=== PATIENT | female | born 1950 | race Caucasian/White ===

== ENCOUNTER → 2017-04-29 | Outpatient (CLI) | payer MEDICARE, OTHER ==
[~2017-04-29] MED LIST: ALLOPURINOL100 MG PO; AVAPRO300 MG PO; CELEXA10 MG PO; COREG3.125 MG PO; CYMBALTA60 MG PO; FLONASE 0.05% 121 EA NAS; MASON NATURAL2000 IU PO; MOTRIN800 MG PO; NORCO 325 MG-7.1 TAB PO; PHENERGAN W/DM120 ML PO; PLAVIX75 MG PO; PRAVACHOL80 MG PO; PREDNICOT10 MG PO; PRILOSEC20 MG PO; SULAR25.5 MG PO; ZYRTEC10 MG PO
[2017-04-29 10:11] LABS: HEMATOCRIT 33.3 % (37.0-47.0); HEMOGLOBIN 10.8 g/dl (12.0-16.0); MEAN CELL VOLUME 97.1 fl (81.0-99.0); MEAN CORPUSCULAR HGB 31.5 pg (27.0-31.0); MEAN CORPUSCULAR HGB CONC 32.4 g/dl (33.0-37.0); MEAN PLATELET VOLUME 10.2 fl (9.6-12.3); PLATELET COUNT AUTOMATED 345 10*3/uL (130-400); RED BLOOD COUNT 3.43 10*6/uL (4.10-5.10); RED CELL DISTRI WIDTH 13.9 % (0-14.5); WHITE BLOOD COUNT 12.6 10*3/uL (4.8-10.8)
[2017-04-29 10:32] LABS: BASOPHILS 2 % (0-1); PLATELET SUFFICIENCY NORMAL (NORMAL); TOTAL CELLS COUNTED 100 #CELLS
== END | disposition home or self-care (01) ==
LOC: LAB 09:12
PROVIDERS: Orthopaedic Surgery
DX: Z01.812 Encounter for preprocedural laboratory examination (principal); R79.89 Other specified abnormal findings of blood chemistry

== ENCOUNTER → 2017-07-16 | Outpatient (CLI) | payer MEDICARE, OTHER ==
[2017-07-16 09:56] LABS: BASO # 0.1 10*3/uL (0.0-0.1); BASO % 0.7 % (0.0-1.0); EOS # 0.2 10*3/uL (0.0-0.4); EOS % 1.9 % (1.0-4.0); HEMATOCRIT 35.3 % (37.0-47.0); HEMOGLOBIN 11.5 g/dl (12.0-16.0); LYMPH # 4.7 10*3/uL (1.3-4.4); LYMPH % 42.9 % (27.0-41.0); MEAN CELL VOLUME 92.4 fl (81.0-99.0); MEAN CORPUSCULAR HGB 30.1 pg (27.0-31.0); MEAN CORPUSCULAR HGB CONC 32.6 g/dl (33.0-37.0); MEAN PLATELET VOLUME 9.7 fl (9.6-12.3); MONO # 0.7 10*3/uL (0.1-1.0); MONO % 6.6 % (3.0-9.0); NEUT # 5.3 10*3/uL (2.3-7.9); NEUT % 47.8 % (47.0-73.0); PLATELET COUNT AUTOMATED 323 10*3/uL (130-400); RED BLOOD COUNT 3.82 10*6/uL (4.10-5.10); RED CELL DISTRI WIDTH 14.4 % (0-14.5)
[2017-07-16 10:18] LABS: ALBUMIN 3.3 gm/dl (3.1-4.5); CREATININE 1.26 mg/dL (0.55-1.02); PHOSPHOROUS 3.8 mg/dL (2.5-4.9); POTASSIUM 4.3 mmol/L (3.5-5.1)
== END | disposition home or self-care (01) ==
LOC: LAB 09:34
PROVIDERS: Internal Medicine
DX: D72.828 Other elevated white blood cell count (principal); G89.4 Chronic pain syndrome; R79.9 Abnormal finding of blood chemistry, unspecified

== ENCOUNTER → 2017-10-16 | Outpatient (CLI) | payer MEDICARE, OTHER ==
[2017-10-16 11:35] LABS: BASO # 0.1 10*3/uL (0.0-0.1); BASO % 0.7 % (0.0-1.0); EOS # 0.1 10*3/uL (0.0-0.4); EOS % 1.1 % (1.0-4.0); HEMATOCRIT 38.5 % (37.0-47.0); HEMOGLOBIN 12.7 g/dl (12.0-16.0); LYMPH # 2.2 10*3/uL (1.3-4.4); LYMPH % 25.9 % (27.0-41.0); MEAN CELL VOLUME 96.3 fl (81.0-99.0); MEAN CORPUSCULAR HGB 31.8 pg (27.0-31.0); MEAN PLATELET VOLUME 9.6 fl (9.6-12.3); MONO # 0.8 10*3/uL (0.1-1.0); MONO % 9.7 % (3.0-9.0); NEUT # 5.3 10*3/uL (2.3-7.9); NEUT % 62.4 % (47.0-73.0); PLATELET COUNT AUTOMATED 241 10*3/uL (130-400); RED CELL DISTRI WIDTH 15.9 % (0-14.5); WHITE BLOOD COUNT 8.5 10*3/uL (4.8-10.8)
[2017-10-16 12:01] LABS: BILIRUBIN NEGATIVE (NEGATIVE); BLOOD 2+ (NEGATIVE); COLOR YELLOW (YELLOW); GLUCOSE NEGATIVE (NEGATIVE); KETONE NEGATIVE (NEGATIVE); LEUKO ESTERASE NEGATIVE (NEGATIVE); NITRITE NEGATIVE (NEGATIVE); PH 5.5 (5.0-9.0); UROBILINOGEN 0.2 E.U./dl (0.2-1.0)
[2017-10-16 12:02] LABS: ALBUMIN 3.2 gm/dl (3.1-4.5); ALKALINE PHOSPHATASE 125 U/L (45-117); BUN 17 mg/dl (7-24); CHLORIDE 103 mmol/L (98-107); CREATININE 1.02 mg/dL (0.55-1.02); PHOSPHOROUS 3.8 mg/dL (2.5-4.9); SGOT/AST 26 IU/L (3-35); SGPT/ALT 36 U/L (12-78); SODIUM 137 mmol/L (136-145); URIC ACID 4.7 mg/dL (2.6-6.0)
[2017-10-16 12:09] LABS: BACTERIA 1+; CLARITY SL CLOUDY (CLEAR); EPITHELIAL CELLS TNTC; RBC 21-30 rbc/hpf (0-2)
[2017-10-17 09:07] LABS: CREATININE,URINE 60.2 mg/dL (Not Estab.)
== END | disposition home or self-care (01) ==
LOC: LAB 11:11
PROVIDERS: Internal Medicine Nephrology
DX: I12.9 Hypertensive chronic kidney disease with stage 1 through stage 4 chronic kidney disease, or unspecified chronic kidney disease (principal); N18.3 Chronic kidney disease, stage 3 (moderate); N39.0 Urinary tract infection, site not specified; R80.9 Proteinuria, unspecified; Q61.02 Congenital multiple renal cysts; R31.21 Asymptomatic microscopic hematuria; E79.0 Hyperuricemia without signs of inflammatory arthritis and tophaceous disease; R52 Pain, unspecified; K21.9 Gastro-esophageal reflux disease without esophagitis; J44.9 Chronic obstructive pulmonary disease, unspecified; E78.4 Other hyperlipidemia

== ENCOUNTER → 2018-09-30 | Outpatient (CLI) | payer MEDICARE, OTHER | END | disposition home or self-care (01) | LOC: MRI 09-27 09:00 | DX: M43.12 Spondylolisthesis, cervical region (principal); M48.02 Spinal stenosis, cervical region ==

== ENCOUNTER 2019-05-21 16:09 | Inpatient (IN) | payer MEDICARE, OTHER ==
[2019-05-21] VITALS (13 sets, daily range): BP systolic 78–124; BP diastolic 41–67
[~2019-05-21] VITALS: Ht 160 cm; Wt 91.3 kg
[2019-05-21 16:43] LABS: BASO # 0.1 10*3/uL (0.0-0.1); BASO % 0.5 % (0.0-1.0); EOS # 0.1 10*3/uL (0.0-0.4); EOS % 0.6 % (1.0-4.0); HEMATOCRIT 39.2 % (37.0-47.0); HEMOGLOBIN 13.2 g/dl (12.0-16.0); LYMPH # 3.9 10*3/uL (1.3-4.4); LYMPH % 29.8 % (27.0-41.0); MEAN CELL VOLUME 93.1 fl (81.0-99.0); MEAN CORPUSCULAR HGB 31.4 pg (27.0-31.0); MEAN CORPUSCULAR HGB CONC 33.7 g/dl (33.0-37.0); MEAN PLATELET VOLUME 9.6 fl (9.6-12.3); MONO % 7.9 % (3.0-9.0); PLATELET COUNT AUTOMATED 334 10*3/uL (130-400); RED BLOOD COUNT 4.21 10*6/uL (4.10-5.10); RED CELL DISTRI WIDTH 14.1 % (0-14.5); WHITE BLOOD COUNT 13.2 10*3/uL (4.8-10.8)
[2019-05-21 16:52] LABS: ACT PARTIAL THROMBO TIME 26.9 SECONDS (20.0-32.1); INTERNATIONAL NORM RATIO 0.9 (2.0-3.5)
[2019-05-21 17:01] LABS: ALBUMIN 3.2 gm/dl (3.1-4.5); ALKALINE PHOSPHATASE 100 U/L (45-117); BUN 45 mg/dl (7-24); CHLORIDE 103 mmol/L (98-107); CREATININE 2.28 mg/dL (0.55-1.02); POTASSIUM 3.7 mmol/L (3.5-5.1); SGOT/AST 14 IU/L (3-35); SGPT/ALT 22 U/L (12-78); SODIUM 132 mmol/L (136-145); TOTAL PROTEIN 6.9 gm/dL (6.4-8.2); TROPONIN I < 0.015 ng/ml (<0.045)
--- NOTE | 2019-05-21 17:46 | NUR ---
500 CC FLUID BOLUS IS COMPLETE. BLOOD PRESSURE IS 102/63 AT THIS TIME. PT REMAINS AWAKE AND ALERT. APPEARS TO BE FEELING BETTER. NO DISTRESS NOTED. NOREEN ASHLEY
--- NOTE | 2019-05-21 18:07 | NUR ---
BLOOD PRESSURE HAS DROPPED WITH FLUIDS RUNNING AT 125CCHR. DR DELA CRUZ MADE AWARE. ADDITIONAL 500 CC BOLUS BEING GIVEN NOW. PT REMAINS AWAKE AND ALERT,NO CO DISCOMFORT. BP 86/53 AT THIS TIME. NOREEN ASHLEY
--- NOTE | 2019-05-21 19:03 | NUR ---
REPORT FROM CARLIN ASHLEY, ASSUMED CARE OF PT, PT IN CT ORDERED FOR HEAD CT
--- NOTE | 2019-05-21 19:17 | NUR ---
PT RETURNED FROM CT IN NO DISTRESS, DAUGHTER AT BEDSIDE, CALL JIN IN REACH
--- NOTE | 2019-05-21 19:19 | NUR ---
EKG AND DIGITAL PHOTOGRAPHIC PRINTER AT BEDSIDE
--- NOTE | 2019-05-21 20:00 | NUR ---
IN TO DISCUSS ADMIT PLAN,PT GIVEN BOX LUNCH, PT MEDICATED FOR CHRONIC BACK PAIN 03/05 ORDERED BY , SEE EMAR, AWAITING BED ASSIGNMENT FOR ADMIT, WILL CONTINUE TO MONITOR PT
--- NOTE | 2019-05-21 20:08 | NUR ---
ADMITTING MD IN TO EVALUATE PT
--- NOTE | 2019-05-21 20:30 | NUR ---
PT ADMITTED TO [facility] IN NO ACUTE DISTRESS WITH BELONGINGS ST ON MONITOR, RESP EASY ON RA, SALINE LOCK PATENT WITH NO REDNESS OR SWELLING, WITH RN ON STRETCHER
--- NOTE | 2019-05-21 20:30 | NUR ---
Time: 2029 A 68 year old FEMALE admitted to 5E under services of ANDREWS SHANE DO. Pt. arrived via stretcher from ER. Chief complaint: DIZZINESS. TEJINDER RHOADES
[2019-05-21] MEDS ORDERED: CYCLOBENZAPRINE10 MG PO (21:11)
[2019-05-21] MEDS ORDERED: AVALIDE 300-121 EACH PO (21:13)
[2019-05-21] MEDS ORDERED: CYMBALTA30 MG PO (21:14)
--- NOTE | 2019-05-21 21:15 | NUR ---
PATIENT HOME MEDICATIONS UP TO DATE. DR CALLAHAN AWARE. ALSO AWARE THAT PATIENT HAS POSITIVE ORTHOSTATIC BP. IV FLUIDS STARTED AT THIS TIME. WILL MONITOR.
[2019-05-22] VITALS: BP 92/48
--- NOTE | 2019-05-22 02:35 | NUR ---
24 HR chart check completed.
[2019-05-22 04:33] LABS: BILIRUBIN NEGATIVE (NEGATIVE); BLOOD NEGATIVE (NEGATIVE); CLARITY CLEAR (CLEAR); COLOR YELLOW (YELLOW); GLUCOSE NEGATIVE (NEGATIVE); KETONE NEGATIVE (NEGATIVE); LEUKO ESTERASE NEGATIVE (NEGATIVE); NITRITE NEGATIVE (NEGATIVE); PH 5.5 (5.0-9.0); SPECIFIC GRAVITY <= 1.005 (1.005-1.030); UROBILINOGEN 0.2 E.U./dl (0.2-1.0)
[2019-05-22 04:40] LABS: BACTERIA TRACE; HYALINE CAST 0-2
--- NOTE | 2019-05-22 05:30 | NUR ---
PATIENT REQUESTING PAIN MEDICATION FOR BACK PAIN, NONE ON ORDER. DR MOY CALLED, OK TO ORDER NORCO SHE TAKES AT HOME. BP 106/50 AT THIS TIME. WILL MONITOR.
--- NOTE | 2019-05-22 05:39 | NUR ---
PATIENT REQUESTING PAIN MEDICATION FOR BACK PAIN RATED 9/10 ON 0/10 SCALE. NORCO ADMINISTERED PRESCRIBED. WILL MONITOR FOR EFFECTIVENESS.
[2019-05-22 06:44] LABS: BASO % 0.4 % (0.0-1.0); EOS # 0.1 10*3/uL (0.0-0.4); EOS % 1.1 % (1.0-4.0); HEMATOCRIT 37.2 % (37.0-47.0); HEMOGLOBIN 12.2 g/dl (12.0-16.0); LYMPH # 3.8 10*3/uL (1.3-4.4); LYMPH % 36.6 % (27.0-41.0); MEAN CELL VOLUME 94.4 fl (81.0-99.0); MEAN CORPUSCULAR HGB CONC 32.8 g/dl (33.0-37.0); MEAN PLATELET VOLUME 9.6 fl (9.6-12.3); MONO # 0.8 10*3/uL (0.1-1.0); MONO % 7.4 % (3.0-9.0); NEUT # 5.7 10*3/uL (2.3-7.9); PLATELET COUNT AUTOMATED 296 10*3/uL (130-400); RED BLOOD COUNT 3.94 10*6/uL (4.10-5.10); RED CELL DISTRI WIDTH 13.9 % (0-14.5); WHITE BLOOD COUNT 10.5 10*3/uL (4.8-10.8)
[2019-05-22 07:03] LABS: CREATININE 1.7 mg/dL (0.55-1.02); PHOSPHOROUS 4.1 mg/dL (2.5-4.9); POTASSIUM 3.7 mmol/L (3.5-5.1)
[2019-05-22 08:00] VITALS: BP 112/82
[2019-05-22 11:30] VITALS: BP 98/56
--- NOTE | 2019-05-22 11:45 | NUR ---
PHYSICAL THERAPY PT EVAL COMPLETED 05/22/19: FULL EVALUATION TO FOLLOW. RECOMMEND PT WHILE HERE TO ADDRESS AND ALLOW RETURN TO PLOF. PT EVAL IS MODERATE COMPLEXITY: [id number]. ON EVAL SHE IS ADAMENT ABOUT NOT GOING TO ANY SNF ON D/C BUT IS WILLING TO DO HOME HEALTH IF INDICATED AT D/C. THANK YOU FOR REFERRAL PASCALE [facility] PT
--- NOTE | 2019-05-22 11:52 | NUR ---
CALLED DR. SALINAS MADE AWARE PT BP 98/56. ALSO MADE AWARE HELD COREG DOSE. RECHECK IN 1 HOUR AND CALL BACK PER DR. SALINAS
[2019-05-22 12:00] VITALS: BP 115/62
--- NOTE | 2019-05-22 12:45 | NUR ---
CALLED DR. SALINAS REGARDING PT BP 120/70. OK TO GIVE COREG.
--- NOTE | 2019-05-22 14:07 | NUR ---
PT C/O BACK PAIN, RATES PAIN 7 OR 8 ON PAIN SCALE 0-10. MEDICATRED WITH NORCO PO PER PRN ORDER, SEE EMAR. CALL LIGHT IN REACH. IVF INFUSING WITH NO PROBLEM.
--- NOTE | 2019-05-22 15:00 | NUR ---
SITTING UP IN RECLINER CHAIR, STATES MEDICATION WAS EFFECTIVE. CALL LIGHT IN REACH.
[2019-05-22 16:00] VITALS: BP 130/69
--- NOTE | 2019-05-22 16:00 | NUR ---
PT SITTING UP IN RECLINER CHAIR. RESP-EASY AND REGULAR. NO C/O AT THIS TIME. VISITORS AT HER SIDE. CALL LIGHT IN REACH. SEE SHIFT ASSESSMENT.
--- NOTE | 2019-05-22 18:30 | NUR ---
PT SITTING UP IN CHAIR. RESP-EASY AND REGULAR. NO C/O AT THIS TIME. CALL LIGHT IN REACH.
[2019-05-22 20:00] VITALS: BP 116/58
--- NOTE | 2019-05-22 20:32 | NUR ---
PATIENT REQUESTING PAIN MEDICATION FOR BACK PAIN RATED 8/10 ON 0/10 SCALE. NORCO ADMINISTERED PRESCRIBED. WILL MONITOR FOR EFFECTIVENESS.
[2019-05-23] VITALS: BP 93/27
--- NOTE | 2019-05-23 03:00 | NUR ---
PATIENT RESTING WITH EYES CLOSED AT THIS TIME. RESPIRATIONS EASY AND UNLABORED. BED ALARM ON AND CALL LIGHT WITHIN REACH. WILL MONITOR.
--- NOTE | 2019-05-23 04:56 | NUR ---
24 HR chart check completed.
--- NOTE | 2019-05-23 05:30 | NUR ---
PATIENT REQUESTING PAIN MEDICATION FOR BACK PAIN RATED 8/10 ON 0/10 SCALE. NOROCO ADMINISTERED PRESCRIBED. WILL MONITOR FOR EFFECTIVENESS.
[2019-05-23 07:09] LABS: CREATININE 1.19 mg/dL (0.55-1.02)
[2019-05-23 08:00] VITALS: BP 130/70
--- NOTE | 2019-05-23 08:30 | NUR ---
Per, Jovanna Salinas, family requesting patient be referred to [facility]. AUTOMOTIVE SALESPERSON faxed new referral to [facility]. -BETSEY Lomeli
--- NOTE | 2019-05-23 10:29 | NUR ---
RESIDENT UPDATED ON ORTHOS PT SITTING IN CHAIR SO SUPINE WAS NOT AVAILABLE
--- NOTE | 2019-05-23 10:30 | NUR ---
Hepatologist in to talk to patient. Patient states lives at home with her daughter. There are 14 steps in the home. Physician: Dr. Jovanni Ivy. She states she has an appt with Dr. Ivy tomorrow 05/24. Pharmacy: [facility] Home health services: none Patient's level of ADLs: INDEPENDENT Patient has working utilities: yes DME: none Follow-up physician's appointment after d/c: will be made by the hospitalist nurse director upon discharge Does patient want to access PORTAL?: no Discharge plan discussed with patient. She is sitting up in her bedside chair without distress noted. She lives at home with her daughter. She is independent in her ADLs and ambulation. Discussed home health care services and she denies any home needs at this time. When medically stable she will be discharged to home. She states her [id number] will provide transportation on discharge. LORENZO MCPHERSON
[2019-05-23 12:00] VITALS: BP 106/77
--- NOTE | 2019-05-23 13:40 | NUR ---
PHYSICAL THERAPY Patient seen this pm 1:1 for therapy visit and was sitting up in bedside chair following lunch upon therapist arrival. Patient identified by name / and was very pleasant this afternoon voicing no new c/o's. Patient transfers sit to stand from low chair surface, SBA x 1, then ambulates CENTER SALES AND SERVICE ASSOCIATE/CGA, 100'x 1, demonstrating slow, steady cecy with no LOB. Patient did demonstrate increased fatigue along with increased low back stiffness during prolonged standing activities. Patient returned to bedside chair and remained with call light, tray table and telephone. Will continue per POC as tolerated, total treatment time 13 minutes. Arslan Gordon, HIGHWAY WORKER
[2019-05-23] MEDS ORDERED: CARVEDILOL3.125 MG PO (14:08)
--- NOTE | 2019-05-23 15:10 | NUR ---
DC DANIELLA PTWILL SEE DR MORA TOMORROW AMA GIVEN PRIOR TODC, DTR PICKING PT UP
--- NOTE | 2019-05-24 10:07 | NUR ---
PHYSICAL THERAPY CO-SIGN I approve of the Physical Therapy notes written above. Briseida Briceño, PT, DPT
== END 2019-05-23 18:23 | disposition home or self-care (01) | DRG 682 ==
LOC: ED 16:09 → 5E 20:01 → EDHOLD 20:01 → 5E 20:14
PROVIDERS: Emergency Medicine; Internal Medicine; Student in an Organized Health Care Education/Training Program; ADMIT Internal Medicine
DX: N17.0 Acute kidney failure with tubular necrosis (principal); R65.11 Systemic inflammatory response syndrome (SIRS) of non-infectious origin with acute organ dysfunction; E87.1 Hypo-osmolality and hyponatremia; E44.0 Moderate protein-calorie malnutrition; F41.9 Anxiety disorder, unspecified; F17.210 Nicotine dependence, cigarettes, uncomplicated; M10.9 Gout, unspecified; I95.1 Orthostatic hypotension; E66.9 Obesity, unspecified; E55.9 Vitamin D deficiency, unspecified; I12.9 Hypertensive chronic kidney disease with stage 1 through stage 4 chronic kidney disease, or unspecified chronic kidney disease; F32.9 Major depressive disorder, single episode, unspecified; N18.3 Chronic kidney disease, stage 3 (moderate); E86.0 Dehydration; E78.5 Hyperlipidemia, unspecified; Z90.49 Acquired absence of other specified parts of digestive tract; Z71.6 Tobacco abuse counseling; Z82.49 Family history of ischemic heart disease and other diseases of the circulatory system; Z80.42 Family history of malignant neoplasm of prostate; Z68.31 Body mass index [BMI] 31.0-31.9, adult

== ENCOUNTER → 2020-06-12 | Outpatient (CLI) | payer MEDICARE, OTHER ==
[~2020-06-12] MED LIST changes: +AVALIDE 300-121 EACH PO; +CARVEDILOL3.125 MG PO; +CYCLOBENZAPRINE10 MG PO; +CYMBALTA30 MG PO
== END | disposition home or self-care (01) ==
LOC: LAB 10:29
PROVIDERS: ATTEND Internal Medicine
DX: Z01.818 Encounter for other preprocedural examination (principal); Z22.322 Carrier or suspected carrier of Methicillin resistant Staphylococcus aureus

== ENCOUNTER 2020-12-03 10:59 | Inpatient (IN) | payer MEDICARE, OTHER ==
[~2020-12-03] VITALS: Ht 154.9 cm; Wt 69.1 kg
[2020-12-03 11:21] VITALS: BP 167/89
[2020-12-03 16:18] LABS: BASO # 0.1 10*3/uL (0.0-0.1); BASO % 0.8 % (0.0-1.0); EOS # 0.2 10*3/uL (0.0-0.4); EOS % 2.2 % (1.0-4.0); HEMATOCRIT 36.6 % (37.0-47.0); LYMPH # 4.3 10*3/uL (1.3-4.4); LYMPH % 43.1 % (27.0-41.0); MEAN CELL VOLUME 94.3 fl (81.0-99.0); MEAN CORPUSCULAR HGB 29.9 pg (27.0-31.0); MEAN CORPUSCULAR HGB CONC 31.7 g/dl (33.0-37.0); MEAN PLATELET VOLUME 10.2 fl (9.6-12.3); MONO # 0.8 10*3/uL (0.1-1.0); MONO % 7.6 % (3.0-9.0); NEUT # 4.6 10*3/uL (2.3-7.9); NEUT % 46.1 % (47.0-73.0); PLATELET COUNT AUTOMATED 351 10*3/uL (130-400); RED BLOOD COUNT 3.88 10*6/uL (4.10-5.10); RED CELL DISTRI WIDTH 14.6 % (0-14.5); WHITE BLOOD COUNT 10.1 10*3/uL (4.8-10.8)
[2020-12-03 16:28] LABS: ACT PARTIAL THROMBO TIME 25.3 SECONDS (20.0-32.1)
[2020-12-03 16:33] LABS: ALBUMIN 3.2 gm/dl (3.1-4.5); ALKALINE PHOSPHATASE 101 U/L (45-117); BUN 27 mg/dl (7-24); CHLORIDE 110 mmol/L (98-107); CREATININE 1.27 mg/dL (0.55-1.02); LIPASE 93 U/L (73-393); POTASSIUM 3.5 mmol/L (3.5-5.1); SGOT/AST 9 IU/L (3-35); SGPT/ALT 11 U/L (12-78); SODIUM 141 mmol/L (136-145)
[2020-12-03 16:35] LABS: TROPONIN I < 0.015 ng/ml (<0.045)
[2020-12-03 18:50] VITALS: BP 181/102
[2020-12-03 19:39] VITALS: BP 189/94
[2020-12-03 20:39] VITALS: BP 205/90
[2020-12-03 21:09] VITALS: BP 158/105
[2020-12-04 02:46] VITALS: BP 136/92
[2020-12-04 04:54] VITALS: BP 166/87
[2020-12-04 06:15] LABS: CHLORIDE 110 mmol/L (98-107); POTASSIUM 3.1 mmol/L (3.5-5.1); SODIUM 141 mmol/L (136-145)
[2020-12-04 06:24] LABS: BASO # 0.1 10*3/uL (0.0-0.1); BASO % 0.6 % (0.0-1.0); EOS # 0.2 10*3/uL (0.0-0.4); EOS % 1.7 % (1.0-4.0); HEMATOCRIT 37.5 % (37.0-47.0); LYMPH # 3.4 10*3/uL (1.3-4.4); LYMPH % 31.5 % (27.0-41.0); MEAN CELL VOLUME 92.4 fl (81.0-99.0); MEAN CORPUSCULAR HGB CONC 32.5 g/dl (33.0-37.0); MEAN PLATELET VOLUME 10.7 fl (9.6-12.3); MONO # 0.9 10*3/uL (0.1-1.0); MONO % 8.2 % (3.0-9.0); NEUT # 6.3 10*3/uL (2.3-7.9); NEUT % 57.8 % (47.0-73.0); PLATELET COUNT AUTOMATED 372 10*3/uL (130-400); RED BLOOD COUNT 4.06 10*6/uL (4.10-5.10); RED CELL DISTRI WIDTH 14.6 % (0-14.5); WHITE BLOOD COUNT 10.9 10*3/uL (4.8-10.8)
[2020-12-04 06:33] VITALS: BP 134/72
[2020-12-04 06:33] LABS: ALBUMIN 3.2 gm/dl (3.1-4.5); ALKALINE PHOSPHATASE 95 U/L (45-117); BUN 22 mg/dl (7-24); CHOLESTEROL 240 mg/dL (<200); CREATININE 1.07 mg/dL (0.55-1.02); LDL CHOLESTEROL 131 mg/dL (9-159); SGOT/AST 12 IU/L (3-35); SGPT/ALT 11 U/L (12-78); THYROID STIM HORMONE (HS) 0.014 uIU/ml (0.358-4.75); TOTAL PROTEIN 6.8 gm/dL (6.4-8.2); TRIGLYCERIDES 242 mg/dl (<150)
[2020-12-04 06:42] LABS: ACT PARTIAL THROMBO TIME 26.6 SECONDS (20.0-32.1)
[2020-12-04 07:10] LABS: VITAMIN D, 25-HYDROXY 36.5 ng/mL (30-100)
[2020-12-04 08:22] VITALS: BP 100/54
[2020-12-04 13:33] LABS: CLARITY CLEAR; COLOR COLORLESS
[2020-12-04 13:36] LABS: CSF RBC 1000 /uL; CSF WBC 1 /uL
[2020-12-04 13:43] LABS: CSF TOTAL PROTEIN 71.3 mg/dL (15-45)
[2020-12-04 13:59] LABS: CSF LYMPHOCYTES 50 % (40-80); CSF MONOCYTES 46 % (15-45)
[2020-12-04 15:18] LABS: BILIRUBIN Negative (Negative); BLOOD Negative (Negative); CLARITY Clear (Clear); COLOR Yellow (Yellow); GLUCOSE Negative (Negative); KETONE Trace (Negative); LEUKO ESTERASE Negative (Negative); NITRITE Negative (Negative); PH 5.5 (4.5-8.0); SPECIFIC GRAVITY 1.015 (1.001-1.030); UROBILINOGEN 0.2 E.U./dl (0.0-1.0)
[2020-12-04 15:25] VITALS: BP 161/85
[2020-12-04 15:35] LABS: BACTERIA TRACE; FINE GRANULAR CAST 0-2; WBC 0-2 wbc/hpf (0-5)
[2020-12-04 19:50] VITALS: BP 165/82
[2020-12-05] VITALS: BP 176/80
[2020-12-05 08:00] VITALS: BP 162/93
[2020-12-05 09:39] LABS: BASO # 0.1 10*3/uL (0.0-0.1); BASO % 0.8 % (0.0-1.0); EOS # 0.1 10*3/uL (0.0-0.4); EOS % 0.7 % (1.0-4.0); HEMATOCRIT 38.5 % (37.0-47.0); LYMPH # 2.8 10*3/uL (1.3-4.4); LYMPH % 25.5 % (27.0-41.0); MEAN CELL VOLUME 91.4 fl (81.0-99.0); MEAN CORPUSCULAR HGB 29.7 pg (27.0-31.0); MEAN CORPUSCULAR HGB CONC 32.5 g/dl (33.0-37.0); MEAN PLATELET VOLUME 10.1 fl (9.6-12.3); MONO # 0.8 10*3/uL (0.1-1.0); MONO % 7.7 % (3.0-9.0); PLATELET COUNT AUTOMATED 352 10*3/uL (130-400); RED BLOOD COUNT 4.21 10*6/uL (4.10-5.10); RED CELL DISTRI WIDTH 14.7 % (0-14.5); WHITE BLOOD COUNT 10.8 10*3/uL (4.8-10.8)
[2020-12-05 09:54] LABS: ALBUMIN 3.1 gm/dl (3.1-4.5); CREATININE 1.52 mg/dL (0.55-1.02); POTASSIUM 3.7 mmol/L (3.5-5.1); TOTAL PROTEIN 6.9 gm/dL (6.4-8.2)
[2020-12-05 12:00] VITALS: BP 167/79
[2020-12-05 16:00] VITALS: BP 152/76
[2020-12-05 20:00] VITALS: BP 178/89
[2020-12-06] VITALS: BP 120/65
[2020-12-06 06:48] LABS: CREATININE 1.25 mg/dL (0.55-1.02)
[2020-12-06 08:00] VITALS: BP 192/90
[2020-12-06] MEDS ORDERED: Fioricet 325 MG1 TAB PO (11:20)
[2020-12-06] MEDS ORDERED: PREDNISONE10 MG PO (11:20)
[2020-12-06] MEDS ORDERED: 'CLONIDINE0.1 MG PO (11:20)
[2020-12-06] MEDS ORDERED: CARVEDILOL6.25 MG PO (11:20)
[2020-12-06 12:00] VITALS: BP 182/96
[2020-12-07 05:06] LABS: HSV-2 DNA Negative (Negative)
== END 2020-12-06 12:24 | disposition home or self-care (01) | DRG 102 ==
LOC: ED 10:59 → EDHOLD 18:50 → 5E 18:50 → EDHOLD 19:56 → 5E 12-04 20:06
PROVIDERS: Family Medicine; Hospitalist; Internal Medicine; Physician Assistant; ADMIT Internal Medicine; ATTEND Internal Medicine
PROC: 009U3ZX Drainage of Spinal Canal, Percutaneous Approach, Diagnostic (ICD-10-PCS; principal; 2020-12-04)
DX: G44.201 Tension-type headache, unspecified, intractable (principal); N17.0 Acute kidney failure with tubular necrosis; F33.9 Major depressive disorder, recurrent, unspecified; I16.0 Hypertensive urgency; D64.9 Anemia, unspecified; N18.30 Chronic kidney disease, stage 3 unspecified; E87.6 Hypokalemia; M1A.9XX0 Chronic gout, unspecified, without tophus (tophi); E55.9 Vitamin D deficiency, unspecified; R73.9 Hyperglycemia, unspecified; F41.9 Anxiety disorder, unspecified; Z51.5 Encounter for palliative care; I12.9 Hypertensive chronic kidney disease with stage 1 through stage 4 chronic kidney disease, or unspecified chronic kidney disease; S51.811A Laceration without foreign body of right forearm, initial encounter; X58.XXXA Exposure to other specified factors, initial encounter; Y93.89 Activity, other specified; Y92.89 Other specified places as the place of occurrence of the external cause; Y99.8 Other external cause status; Z66 Do not resuscitate; Z90.49 Acquired absence of other specified parts of digestive tract; Z90.710 Acquired absence of both cervix and uterus; Z82.49 Family history of ischemic heart disease and other diseases of the circulatory system; Z79.82 Long term (current) use of aspirin; Z79.899 Other long term (current) drug therapy

== ENCOUNTER → 2020-12-28 | Outpatient (CLI) | payer MEDICARE, OTHER ==
[~2020-12-28] MED LIST changes: +'CLONIDINE0.1 MG PO; +CARVEDILOL6.25 MG PO; +Fioricet 325 MG1 TAB PO; +PREDNISONE10 MG PO
== END | disposition home or self-care (01) ==
LOC: US 16:00
PROVIDERS: ATTEND Internal Medicine
DX: N17.9 Acute kidney failure, unspecified (principal); N28.1 Cyst of kidney, acquired; N28.89 Other specified disorders of kidney and ureter; I16.0 Hypertensive urgency

== ENCOUNTER → 2021-03-28 | Outpatient (CLI) | payer MEDICARE, OTHER ==
[2021-03-28 12:34] LABS: BILIRUBIN Negative (Negative); BLOOD Trace-Lysed (Negative); CLARITY Clear (Clear); COLOR Yellow (Yellow); GLUCOSE Negative (Negative); KETONE Trace (Negative); LEUKO ESTERASE Negative (Negative); NITRITE Negative (Negative); PH 5.5 (4.5-8.0); SPECIFIC GRAVITY 1.015 (1.001-1.030); UROBILINOGEN 0.2 E.U./dl (0.0-1.0)
[2021-03-28 12:34] LABS: BASO # 0.1 10*3/uL (0.0-0.1); BASO % 0.6 % (0.0-1.0); EOS # 0.1 10*3/uL (0.0-0.4); EOS % 0.9 % (1.0-4.0); HEMATOCRIT 39.6 % (37.0-47.0); LYMPH # 3.9 10*3/uL (1.3-4.4); LYMPH % 29.7 % (27.0-41.0); MEAN CORPUSCULAR HGB CONC 31.8 g/dl (33.0-37.0); MEAN PLATELET VOLUME 10.1 fl (9.6-12.3); MONO % 7.2 % (3.0-9.0); NEUT # 8.1 10*3/uL (2.3-7.9); NEUT % 61.1 % (47.0-73.0); PLATELET COUNT AUTOMATED 355 10*3/uL (130-400); RED BLOOD COUNT 4.35 10*6/uL (4.10-5.10); RED CELL DISTRI WIDTH 14.1 % (0-14.5); WHITE BLOOD COUNT 13.2 10*3/uL (4.8-10.8)
[2021-03-28 12:49] LABS: POTASSIUM 3.5 mmol/L (3.5-5.1)
[2021-03-28 12:50] LABS: ALBUMIN 3.3 gm/dl (3.1-4.5)
[2021-03-28 12:54] LABS: ALBUMIN 3.3 gm/dl (3.1-4.5); CREATININE 1.57 mg/dL (0.55-1.02)
[2021-03-28 12:55] LABS: FREE T4 0.91 ng/dl (0.76-1.46); TOTAL PROTEIN 7.5 gm/dL (6.4-8.2); URIC ACID 6.7 mg/dL (2.6-6.0)
[2021-03-28 12:55] LABS: BACTERIA 2+
[2021-03-28 13:51] LABS: FERRITIN 21.5 ng/mL (10.0-291.0)
[2021-03-28 13:52] LABS: PTH INTACT 116.3 pg/mL (18.5-88.0)
== END | disposition home or self-care (01) ==
LOC: LAB 11:50
PROVIDERS: Internal Medicine; ATTEND Internal Medicine Nephrology
DX: I12.9 Hypertensive chronic kidney disease with stage 1 through stage 4 chronic kidney disease, or unspecified chronic kidney disease (principal); N18.32 Chronic kidney disease, stage 3b; D63.1 Anemia in chronic kidney disease; N25.81 Secondary hyperparathyroidism of renal origin; J44.9 Chronic obstructive pulmonary disease, unspecified; M1A.9XX0 Chronic gout, unspecified, without tophus (tophi); R63.4 Abnormal weight loss; E78.2 Mixed hyperlipidemia; Z79.899 Other long term (current) drug therapy

== ENCOUNTER → 2021-06-05 | Outpatient (CLI) | payer MEDICARE, OTHER ==
[2021-06-05 10:15] LABS: BASO # 0.1 10*3/uL (0.0-0.1); BASO % 0.8 % (0.0-1.0); EOS # 0.3 10*3/uL (0.0-0.4); EOS % 2.8 % (1.0-4.0); HEMATOCRIT 34.5 % (37.0-47.0); LYMPH # 3.6 10*3/uL (1.3-4.4); LYMPH % 33.8 % (27.0-41.0); MEAN CELL VOLUME 91.5 fl (81.0-99.0); MEAN CORPUSCULAR HGB 29.2 pg (27.0-31.0); MEAN CORPUSCULAR HGB CONC 31.9 g/dl (33.0-37.0); MEAN PLATELET VOLUME 10.4 fl (9.6-12.3); MONO # 0.8 10*3/uL (0.1-1.0); MONO % 7.6 % (3.0-9.0); NEUT # 5.9 10*3/uL (2.3-7.9); NEUT % 54.8 % (47.0-73.0); PLATELET COUNT AUTOMATED 300 10*3/uL (130-400); RED BLOOD COUNT 3.77 10*6/uL (4.10-5.10); RED CELL DISTRI WIDTH 14.9 % (0-14.5); WHITE BLOOD COUNT 10.7 10*3/uL (4.8-10.8)
[2021-06-05 10:17] LABS: BILIRUBIN Negative (Negative); BLOOD Trace-Lysed (Negative); CLARITY Clear (Clear); COLOR Yellow (Yellow); GLUCOSE Negative (Negative); KETONE Negative (Negative); LEUKO ESTERASE Negative (Negative); NITRITE Negative (Negative); PH 5.5 (4.5-8.0); SPECIFIC GRAVITY 1.015 (1.001-1.030); UROBILINOGEN 0.2 E.U./dl (0.0-1.0)
[2021-06-05 10:42] LABS: CREATININE 1.61 mg/dL (0.55-1.02); POTASSIUM 3.6 mmol/L (3.5-5.1)
[2021-06-05 11:19] LABS: BACTERIA 1+
[2021-06-05 16:07] LABS: FERRITIN 17.6 ng/mL (10.0-291.0); PTH INTACT 85.3 pg/mL (18.5-88.0); VITAMIN D, 25-HYDROXY 45.8 ng/mL (30-100)
== END | disposition home or self-care (01) ==
LOC: LAB 09:40 → US 10:30
PROVIDERS: ATTEND Internal Medicine Nephrology
DX: N28.1 Cyst of kidney, acquired (principal); N18.32 Chronic kidney disease, stage 3b; Z79.899 Other long term (current) drug therapy; D63.1 Anemia in chronic kidney disease

== ENCOUNTER → 2022-01-23 | Outpatient (CLI) | payer MEDICARE, OTHER ==
[~2022-01-23] MED LIST changes: +CARAFATE1 G1 PO; +COREG12.5 M1 PO; +DULOXETINE HCL60 MG PO; +ELIQUIS5 M1 PO; +FERROUS SULFAT325 MG PO; +FLONASE ALLERG9.9 ML NAS; +FUROSEMIDE40 MG PO; +LASIX40 MG PO; +LISINOPRIL5 MG PO; +MUCINEX ER600 MG PO; +NORVASC5 MG PO; +SERTRALINE HYD100 MG PO; +SODIUM BICARBO650 MG PO; +VIBRAMYCIN HYC100 MG PO; +VITAMIN D31250 MC1 PO
[2022-01-23 12:04] LABS: BASO # 0.1 10*3/uL (0.0-0.1); BASO % 1.1 % (0.0-1.0); EOS # 0.1 10*3/uL (0.0-0.4); EOS % 1.5 % (1.0-4.0); HEMATOCRIT 33.8 % (37.0-47.0); LYMPH # 3.2 10*3/uL (1.3-4.4); LYMPH % 43.8 % (27.0-41.0); MEAN CELL VOLUME 91.6 fl (81.0-99.0); MEAN CORPUSCULAR HGB CONC 31.7 g/dl (33.0-37.0); MEAN PLATELET VOLUME 10.7 fl (9.6-12.3); MONO # 0.6 10*3/uL (0.1-1.0); MONO % 7.6 % (3.0-9.0); NEUT # 3.4 10*3/uL (2.3-7.9); NEUT % 45.9 % (47.0-73.0); PLATELET COUNT AUTOMATED 291 10*3/uL (130-400); RED BLOOD COUNT 3.69 10*6/uL (4.10-5.10); RED CELL DISTRI WIDTH 13.6 % (0-14.5); WHITE BLOOD COUNT 7.4 10*3/uL (4.8-10.8)
[2022-01-23 12:15] LABS: BILIRUBIN Negative (Negative); BLOOD Trace-Lysed (Negative); CLARITY Clear (Clear); COLOR Yellow (Yellow); GLUCOSE Negative (Negative); KETONE Negative (Negative); LEUKO ESTERASE Trace (Negative); NITRITE Negative (Negative); PH 5.5 (4.5-8.0); UROBILINOGEN 0.2 E.U./dl (0.0-1.0)
[2022-01-23 12:21] LABS: URINE CREATININE RANDOM 48.7 mg/dL
[2022-01-23 12:28] LABS: CREATININE 1.71 mg/dL (0.55-1.02)
[2022-01-23 12:31] LABS: URIC ACID 8.2 mg/dL (2.6-6.0)
[2022-01-23 13:19] LABS: BACTERIA 1+; EPITHELIAL CELLS 16-20; WBC 16-20 wbc/hpf (0-5)
[2022-01-23 13:20] LABS: VITAMIN D, 25-HYDROXY 50.3 ng/mL (30-100)
[2022-01-23 13:21] LABS: FERRITIN 38.5 ng/mL (10.0-291.0)
== END | disposition home or self-care (01) ==
LOC: LAB 11:23
PROVIDERS: ATTEND Internal Medicine Nephrology
DX: N18.32 Chronic kidney disease, stage 3b (principal); E79.0 Hyperuricemia without signs of inflammatory arthritis and tophaceous disease; D63.1 Anemia in chronic kidney disease; N25.81 Secondary hyperparathyroidism of renal origin; Z79.899 Other long term (current) drug therapy

== ENCOUNTER → 2022-08-25 | Outpatient (CLI) | payer MEDICARE, OTHER ==
[~2022-08-25] MED LIST changes: +LOPRESSOR25 MG PO
[2022-08-25 09:06] LABS: BASO # 0.1 10*3/uL (0.0-0.1); BASO % 0.9 % (0.0-1.0); EOS # 0.2 10*3/uL (0.0-0.4); EOS % 1.7 % (1.0-4.0); HEMATOCRIT 32.4 % (37.0-47.0); LYMPH # 2.3 10*3/uL (1.3-4.4); LYMPH % 26.3 % (27.0-41.0); MEAN CELL VOLUME 96.1 fl (81.0-99.0); MEAN CORPUSCULAR HGB CONC 31.2 g/dl (33.0-37.0); MEAN PLATELET VOLUME 11.1 fl (9.6-12.3); MONO # 0.8 10*3/uL (0.1-1.0); MONO % 8.8 % (3.0-9.0); NEUT # 5.3 10*3/uL (2.3-7.9); PLATELET COUNT AUTOMATED 234 10*3/uL (130-400); RED BLOOD COUNT 3.37 10*6/uL (4.10-5.10); RED CELL DISTRI WIDTH 13.8 % (0-14.5); WHITE BLOOD COUNT 8.6 10*3/uL (4.8-10.8)
[2022-08-25 09:08] LABS: BILIRUBIN Negative (Negative); BLOOD 2+ (Negative); CLARITY Clear (Clear); COLOR Yellow (Yellow); GLUCOSE Negative (Negative); KETONE Negative (Negative); LEUKO ESTERASE Negative (Negative); NITRITE Negative (Negative); PH 6.5 (4.5-8.0); UROBILINOGEN 0.2 E.U./dl (0.0-1.0)
[2022-08-25 09:17] LABS: URINE CREATININE RANDOM 29.65 mg/dL
[2022-08-25 09:23] LABS: POTASSIUM 4.2 mmol/L (3.4-5.1); URIC ACID 5.7 mg/dL (3.1-7.8)
[2022-08-25 09:28] LABS: BACTERIA TRACE; RBC TNTC rbc/hpf (0-2)
[2022-08-25 10:23] LABS: VITAMIN D, 25-HYDROXY 63.4 ng/mL (30-100)
== END | disposition home or self-care (01) ==
LOC: LAB 08:29
PROVIDERS: ATTEND Internal Medicine Nephrology
DX: N18.32 Chronic kidney disease, stage 3b (principal); D63.1 Anemia in chronic kidney disease; E79.0 Hyperuricemia without signs of inflammatory arthritis and tophaceous disease; N25.81 Secondary hyperparathyroidism of renal origin; Z79.899 Other long term (current) drug therapy